=== PATIENT | female | born 1995 | race Caucasian/White ===

== ENCOUNTER 2017-04-17 18:43 | Emergency (ER) | payer BC ==
[~2017-04-17] VITALS: Ht 170.2 cm; Wt 67.5 kg
[2017-04-17 18:52] VITALS: BP 133/66; PULSE 74; TEMP 37.1; O2SAT 99; Ht 170.2 cm; Wt 67.5 kg
--- NOTE | 2017-04-17 20:45 | EMERGENCY ROOM VISIT NOTE ---
ED Visit Note First contact with patient: 20:25 CHIEF COMPLAINT: Flesh-colored bumps in the groin HISTORY OF PRESENT ILLNESS: This 21-year-old female patient presents to the emergency department alone, complaining of small, flash colored bumps located on her phone and rubbing. Patient states she has been experiencing above since December, and states they have increased in number since then. Patient states initially she thought the lesions were razor bumps, however they did not improve. Patient has been sexually active 3 partners since October of this year. All partners are male. Patient states she does not always use condoms, and Has had unprotected sex with these medicines. Patient denies pain, itchiness, drainage, discharge, vaginal discharge, abnormal vaginal bleeding, any other associated symptoms. She states she is concerned about the lesions because they have not gotten better. Patient's last menstrual period was 1.5 weeks ago, and states it was normal. Patient denies history of STDs. 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 REVIEW OF SYSTEMS: A 6-system review of systems was performed with positives and pertinent negatives listed in the history of present illness. All other systems were reviewed and are negative. ALLERGIES: None MEDICATIONS: Oral control PMH: None SOCIAL HISTORY: Patient lives locally as a [employer] student. She denies tobacco, alcohol use, however does report occasional marijuana use. PHYSICAL EXAM: VITALS: Vitals are noted on the nurse's note and reviewed by myself. Vital signs stable. GENERAL: 21-year-old female, in no acute distress, nondiaphoretic, well- developed well-nourished. LYMPH: No lymphadenopathy or tenderness on palpation SKIN: Small, 1-2 mm flesh-colored papules located on patient's vulva, labia, groin. Bumps are circular with shallow dimple in the center. approximately 10 lesions noted at this time. EMERGENCY DEPARTMENT COURSE: She was seen and evaluated as above. I discussed with the patient results related to her physical examination. I suspect this infection is molluscum contagiosum, and discussed with the patient that this disease is viral in nature and will be self-limiting. Patient is concerned about being unable to have sex until the lesions are gone, so would like to consider follow-up with gynecology or dermatology for possible removal of the lesions. I provided the patient with phone numbers on discharge instructions. Patient was discharged home in good condition. DIAGNOSIS: Molluscum contagiosum of the genitals DIFFERENTIAL DIAGNOSIS: Herpes Simplex Virus, chlamydia, gonorrhea, syphilis, and others. DISCHARGE INSTRUCTIONS & TREATMENT: You should avoid sexual contact while you still have bumps on your genitals. Keep the area clean and dry, and you should replace a razor with each use. Avoid touching the area with the lesions, as this could increase her risk of spreading it. You should follow up with gynecology at your leisure regarding the lesions and possible removal. Vital Signs Date Time Temp Pulse Resp B/P (MAP) Pulse Ox O2 Delivery O2 Flow Rate FiO2 04/17/17 18:52 37.1 74 18 133/66 99 Room Air Departure Information Impression Primary Impression: Anogenital molluscum contagiosum Dispostion Home / Self-Care Condition GOOD Referrals No Doctor, Assigned (PCP) Terrie Argueta, D.O. Patient Instructions ED Molluscum Contagiosum, [facility] Additional Instructions You should avoid sexual contact while you still have bumps on your genitals. Keep the area clean and dry, and you should replace a razor with each use. Avoid touching the area with the lesions, as this could increase her risk of spreading it. You should follow up with gynecology at your leisure regarding the lesions and possible removal.
== END 2017-04-17 20:48 | disposition home or self-care (01) ==
LOC: C.EDB 18:44 → C.EDD 20:48
DX: B08.1 Molluscum contagiosum (principal)